=== PATIENT | male | born 1990 | race African-American/Black ===

== ENCOUNTER 2017-03-24 04:32 | Emergency (ER) | payer OTHER ==
[~2017-03-24] VITALS: Ht 190.5 cm; Wt 84.6 kg
[~2017-03-24 04:32] MED LIST: no home meds
[2017-03-24 05:03] LABS: HEMATOCRIT 41.5 % (38.0-50.0); MCH 28.8 PG (29.0-34.0); MCHC 33.5 G/DL (30.0-36.0); MCV 85.9 FL (86-99); MEAN PLAT.VOLUME 11.9 uM^3 (9.0-12.4); PLATELET COUNT 200 K/uL (156-360); RBC DIS.WIDTH-CV 12.5 % (11.8-14.6); RBC DIS.WIDTH-SD 39.2 % (39-53); RED BLOOD COUNT 4.83 M/uL (4.00-5.50); WHITE BLOOD COUNT 10.2 K/uL (4.1-10.2)
[2017-03-24 05:12] LABS: CHLORIDE 106 mEq/L (99-109); POTASSIUM 3.6 mEq/L (3.7-5.4); SODIUM 139 mEq/L (136-147)
[2017-03-24 05:14] LABS: GLUCOSE 113 mg/dL (70-99)
[2017-03-24 05:15] LABS: ANION GAP 12 MEQ/L (2-14)
[2017-03-24 05:16] LABS: TOTAL BILIRUBIN 0.4 mg/dL (0.0-1.0)
[2017-03-24 05:17] LABS: ALKALINE PHOSPHATASE 55 IU/L (3-129)
[2017-03-24 05:18] LABS: GFR ESTIMATE (CALCULATED) > 59 mL/min/
[2017-03-24 05:19] LABS: UREA NITROGEN (BUN) 9 mg/dL (9-23)
[2017-03-24] MEDS ORDERED: ZOFRAN4 MG PO (05:28)
[2017-03-24 06:07] VITALS: BP 115/67
[2017-03-25] MEDS ORDERED: PERCOCET 5/31 TABLET PO ×2 (00:27→00:29)
[2017-03-25] MEDS ORDERED: FLAGYL500 MG PO (00:27)
[2017-03-25] MEDS ORDERED: CIPRO500 MG PO (00:27)
== END 2017-03-24 06:12 | disposition home or self-care (01) ==
LOC: EME 04:32
DX: R19.7 Diarrhea, unspecified (principal); R10.30 Lower abdominal pain, unspecified
CPT/HCPCS: 80053; 81003; 85027; 99281; 99285; J2270; J2405; J7030

== ENCOUNTER 2017-03-24 21:37 | Emergency (ER) | payer OTHER ==
[~2017-03-24] VITALS: Ht 188 cm; Wt 85.1 kg
[~2017-03-24 21:37] MED LIST changes: +ZOFRAN4 MG PO
[2017-03-24 22:49] LABS: HEMATOCRIT 39.7 % (38.0-50.0); MCH 29.5 PG (29.0-34.0); MCHC 34.8 G/DL (30.0-36.0); MCV 84.8 FL (86-99); MEAN PLAT.VOLUME 11.5 uM^3 (9.0-12.4); PLATELET COUNT 160 K/uL (156-360); RBC DIS.WIDTH-CV 12.3 % (11.8-14.6); RBC DIS.WIDTH-SD 37.5 % (39-53); RED BLOOD COUNT 4.68 M/uL (4.00-5.50); WHITE BLOOD COUNT 7.7 K/uL (4.1-10.2)
[2017-03-24 23:05] LABS: ANION GAP 9 MEQ/L (2-14); CHLORIDE 104 MEQ/L (99-109); DIRECT BILIRUBIN 0.1 mg/dL (0.0-0.3); POTASSIUM 3.5 MEQ/L (3.7-5.4); SAMPLE HEMOLYSIS CHECK 0; SAMPLE ICTERIC CHECK 0; SAMPLE LIPEMIA CHECK 0; SODIUM 138 MEQ/L (136-147); TOTAL BILIRUBIN 0.5 MG/DL (0.0-1.0)
[2017-03-24 23:11] LABS: ALKALINE PHOSPHATASE 44 IU/L (3-129); GFR ESTIMATE (CALCULATED) > 59 mL/min/; GLUCOSE 121 mg/dL (70-99); LIPASE 15 U/L (1.0-51.0); UREA NITROGEN (BUN) 6 mg/dL (9-23)
[2017-03-25] MEDS ORDERED: FLAGYL500 MG PO (00:27)
[2017-03-25] MEDS ORDERED: PERCOCET 5/31 TABLET PO ×2 (00:27→00:29)
[2017-03-25] MEDS ORDERED: CIPRO500 MG PO (00:27)
[2017-03-25 01:31] VITALS: BP 94/75
== END 2017-03-25 01:38 | disposition home or self-care (01) ==
LOC: EME 21:37
PROVIDERS: Emergency Medicine
DX: K52.9 Noninfective gastroenteritis and colitis, unspecified (principal); F41.0 Panic disorder [episodic paroxysmal anxiety]
CPT/HCPCS: 74176; 80048; 80076; 83690; 85027; 99281; 99285; J0744; J1885; J2270; J2405; J7030

== ENCOUNTER 2017-03-28 13:01 | Emergency (ER) | payer OTHER ==
[~2017-03-28] VITALS: Ht 188 cm; Wt 80.6 kg
[~2017-03-28 13:01] MED LIST changes: +CIPRO500 MG PO; +FLAGYL500 MG PO; +PERCOCET 5/31 TABLET PO
[2017-03-28 14:22] LABS: HEMATOCRIT 38.3 % (38.0-50.0); MCH 28.9 PG (29.0-34.0); MCHC 34.5 G/DL (30.0-36.0); RBC DIS.WIDTH-CV 12.2 % (11.8-14.6); RBC DIS.WIDTH-SD 37.2 % (39-53); RED BLOOD COUNT 4.56 M/uL (4.00-5.50); WHITE BLOOD COUNT 6.7 K/uL (4.1-10.2)
[2017-03-28 14:32] LABS: PLATELET COUNT 270 K/uL (156-360)
[2017-03-28 14:54] LABS: ALKALINE PHOSPHATASE 45 IU/L (3-129); ANION GAP 11 MEQ/L (2-14); CHLORIDE 104 MEQ/L (99-109); GFR ESTIMATE (CALCULATED) > 59 mL/min/; GLUCOSE 107 mg/dL (70-99); POTASSIUM 3.5 MEQ/L (3.7-5.4); SAMPLE HEMOLYSIS CHECK 0; SAMPLE ICTERIC CHECK 0; SAMPLE LIPEMIA CHECK 0; SODIUM 144 MEQ/L (136-147); UREA NITROGEN (BUN) 10 mg/dL (9-23)
[2017-03-28 14:57] LABS: TOTAL BILIRUBIN 0.3 MG/DL (0.0-1.0)
[2017-03-28 15:03] LABS: ADD MIUA? YES; BILIRUBIN NEGATIVE; BLOOD NEGATIVE; COLOR AMBER ((YELLOW)); GLUCOSE (STRIP) NEGATIVE; KETONES 80; LEUKOCYTES SMALL; NITRITE NEGATIVE; PROTEIN (STRIP) 100; SPECIFIC GRAVITY 1.023 (1.000-1.030)
[2017-03-28 15:20] LABS: AMORPHOUS URATES CRYSTALS 3+; BACTERIA RARE /HPF; CASTS NONE SEEN /LPF; CRYSTALS PRESENT; EPITHELIAL CELLS RARE /HPF; MUCUS NONE SEEN /LPF; RED BLOOD CELLS NONE SEEN /HPF (0-5); UCUL ADDED? NO; WHITE BLOOD CELLS RARE /HPF (0-5)
[2017-03-28] MEDS ORDERED: BENTYL20 MG PO (15:31)
[2017-03-28 16:21] VITALS: BP 100/56
== END 2017-03-28 16:22 | disposition home or self-care (01) ==
LOC: EME 13:01
DX: R10.30 Lower abdominal pain, unspecified (principal); F41.0 Panic disorder [episodic paroxysmal anxiety]; Z90.49 Acquired absence of other specified parts of digestive tract
CPT/HCPCS: 80053; 81003; 85027; 99281; 99284